=== PATIENT | female | born 1990 | race African-American/Black ===

== ENCOUNTER 2017-11-02 14:42 | Emergency (ER) | payer SELFPAY ==
[~2017-11-02] VITALS: Ht 157.5 cm; Wt 81.0 kg
[2017-11-02 15:21] VITALS: BP 119/73
== END 2017-11-02 21:15 | disposition left against medical advice (07) ==
LOC: ER 15:00
DX: F41.0 Panic disorder [episodic paroxysmal anxiety] (principal); Z53.21 Procedure and treatment not carried out due to patient leaving prior to being seen by health care provider